=== PATIENT | male | born 1960 | race Two or more races ===

== ENCOUNTER 2021-07-21 06:50 | Day surgery (SDC) | payer OTHER | END 2021-07-21 12:15 | disposition home or self-care (01) | LOC: AMB-ENDOS 06:50 | PROVIDERS: ATTEND Colon & Rectal Surgery | DX: D12.2 Benign neoplasm of ascending colon (principal); D12.8 Benign neoplasm of rectum; Z20.822 Contact with and (suspected) exposure to COVID-19 ==